=== PATIENT | female | born 1940 | race Hispanic/Latino ===

== ENCOUNTER → 2019-01-15 | Outpatient (CLI) | payer MEDICARE | END | disposition home or self-care (01) | LOC: RAH 10:51 | PROVIDERS: ATTEND Internal Medicine | DX: Z01.818 Encounter for other preprocedural examination (principal); I10 Essential (primary) hypertension | CPT/HCPCS: 71046 ==

== ENCOUNTER 2021-03-31 06:25 | Observation (INO) | payer MEDICARE ==
[2021-03-31] VITALS (22 sets, daily range): BP systolic 103–148; BP diastolic 44–77
[~2021-03-31] VITALS: Ht 165.1 cm; Wt 90.0 kg
[2021-03-31 08:14] LABS: BASOPHILS % (AUTO) 0.3 % (0.0-5.0); EOSINOPHILS % (AUTO) 0.1 % (0.0-8.0); HEMATOCRIT 35.6 % (36-48); LYMPHOCYTES % (AUTO) 7.6 % (21.0-51.0); MEAN CORPUSCULAR HEMOGLOBIN 32.2 pg (27.0-33.0); MEAN CORPUSCULAR HGB CONC 33.4 g/dL (32.0-36.0); MEAN CORPUSCULAR VOLUME 96.2 fL (79-99); MONOCYTES % (AUTO) 4.9 % (3.0-13.0); NEUTROPHILS % (AUTO) 86.5 % (40.0-77.0); PLATELET COUNT (AUTO) 335 K/uL (130-400); RED CELL DISTRIBUTION WIDTH 13.4 % (11.0-15.5); WHITE BLOOD COUNT (AUTO) 17.3 K/uL (4.8-10.8)
[2021-03-31] MEDS ORDERED: 0.9% NACL 500ML IV.SOLN 500 ML IV ONE (08:18)
[2021-03-31] MEDS ORDERED: ONDANSETRON 4MG INJ ONE ×2 (08:20→11:52)
[2021-03-31 08:27] LABS: CREATININE 0.9 mg/dL (0.5-1.5)
[2021-03-31] MEDS ORDERED: ONDANSETRON 4MG INJ IVP SCH (08:30)
[2021-03-31] MEDS ORDERED: 0.9% NACL 500ML IV.SOLN 500 ML IV SCH (08:30)
[2021-03-31 08:31] LABS: ALBUMIN 4.2 g/dL (3.5-5.0); BILIRUBIN,TOTAL 0.6 mg/dL (0.2-1.0)
[2021-03-31 08:44] LABS: APPEARANCE,URINE CLEAR (CLEAR); BILIRUBIN,URINE NEGATIVE (NEGATIVE); COLOR,URINE YELLOW (YELLOW); GLUCOSE, URINE (UA) NEGATIVE (NEGATIVE); KETONES,URINE NEGATIVE (NEGATIVE); LEUKOCYTE ESTERASE ,URINE MODERATE (NEGATIVE); NITRATE,URINE NEGATIVE (NEGATIVE); OCCULT BLOOD,URINE NEGATIVE (NEGATIVE); PH,URINE 5.5 (5.0-8.0); PROTEIN,URINE NEGATIVE (NEGATIVE); UROBILINOGEN,URINE 0.2 mg/dL (0.2-1.0)
[2021-03-31 08:49] LABS: BACTERIA,URINE Rare /HPF (None Seen); RBC,URINE 0-1 /HPF (0-1); SQUAMOUS EPITHELIAL CELL,UR Rare /HPF (0-2); WBC,URINE 0-1 /HPF (0-1)
[2021-03-31] MEDS ORDERED: ZOSYN 3.375GM +NS 50ML IV SCH (09:37)
[2021-03-31] MEDS ORDERED: BIMA12.5OS OU (10:26)
[2021-03-31] MEDS ORDERED: LOVA20TA3 PO (10:26)
[2021-03-31] MEDS ORDERED: CLON0.1T PO ×2 (10:26→10:27)
[2021-03-31] MEDS ORDERED: CETI10TA57 PO (10:26)
[2021-03-31] MEDS ORDERED: MONT-39 PO (10:26)
[2021-03-31] MEDS ORDERED: ESCI5TAB16 PO (10:26)
[2021-03-31] MEDS ORDERED: METO-391 PO ×3 (10:26→10:29)
[2021-03-31] MEDS ORDERED: FAMO-136 PO (10:26)
[2021-03-31] MEDS ORDERED: BRIM5DRO OU (10:26)
[2021-03-31] MEDS ORDERED: ASPI-1443 PO (10:26)
[2021-03-31] MEDS ORDERED: LIDOCAINE PF 100MG/5ML (2%) SYRINGE 5ML ONE (11:51)
[2021-03-31] MEDS ORDERED: SUCCINYLCHOLINE CHLORIDE 20 MG/ML 10 ML VIAL ONE (11:51)
[2021-03-31] MEDS ORDERED: ROCURONIUM 10MG/1ML SYR 10 MG/ML ML ONE (11:52)
[2021-03-31] MEDS ORDERED: NEOSTIGMINE 5MG/5ML SYR IV ONE (11:52)
[2021-03-31] MEDS ORDERED: DEXAMETHASONE SOD PHOSPHATE 10MG/ML 1ML VIAL ONE (11:52)
[2021-03-31] MEDS ORDERED: PROPOFOL 10 MG/ML 20ML VIAL IV ONE (11:52)
[2021-03-31] MEDS ORDERED: MIDAZOLAM HCL 1 MG/ML 2ML VIAL ONE (11:52)
[2021-03-31] MEDS ORDERED: GLYCOPYRROLATE 1 MG/5 ML SYRINGE ONE (11:52)
[2021-03-31] MEDS ORDERED: FENTANYL CITRATE PF 50 MCG/1 ML 2ML VIAL ONE (11:53)
[2021-03-31] MEDS ORDERED: MORPHINE 4 MG SYG IV SCH (12:00)
[2021-03-31] MEDS ORDERED: MORPHINE 4 MG SYG IM SCH (12:00)
[2021-03-31] MEDS ORDERED: LACTATED RINGERS 1000ML 1,000 ML IV ONE (12:03)
[2021-03-31] MEDS ORDERED: BUPIVACAINE/PF 0.5% 30ML VIAL ONE (12:40)
[2021-03-31] MEDS ORDERED: LIDOCAINE HCL 1% 20 ML VIAL ONE (12:40)
[2021-03-31] MEDS ORDERED: ESMOLOL HCL 10 MG/ML 10 ML VIAL ONE (12:54)
[2021-03-31] MEDS ORDERED: CEFAZOLIN SODIUM 1 GM VIAL ONE (13:14)
[2021-03-31] MEDS ORDERED: KCL 20 MEQ ERTAB PO PRN (13:30)
[2021-03-31] MEDS ORDERED: ACETAMINOPHEN 325 MG TAB PO PRN ×2 (13:30)
[2021-03-31] MEDS ORDERED: DiphenhydrAMINE HCL 50 MG/ML VIAL IV PRN (13:30)
[2021-03-31] MEDS ORDERED: MORPHINE 4 MG SYG IV PRN (13:30)
[2021-03-31] MEDS ORDERED: LIDOCAINE HCL-MPF 1% 2ML VIAL IV PRN ×2 (13:30)
[2021-03-31] MEDS ORDERED: POTASSIUM CHLORIDE 10% ELIXIR 20 MEQ/15 ML UDCUP PO PRN (13:30)
[2021-03-31] MEDS ORDERED: ONDANSETRON 4MG INJ IV PRN (13:30)
[2021-03-31] MEDS ORDERED: POTASSIUM CHLORIDE 20MEQ/100ML 100 ML IV PRN ×2 (13:30)
[2021-03-31] MEDS ORDERED: HYDROMORPHONE 1 MG INJ IVP PRN (15:30)
[2021-03-31] MEDS ORDERED: OXYCODONE/ACETAMIN 5/325MG TAB PO PRN (15:30)
[2021-03-31] MEDS: Brimonidine Tartrate/Timolol (Combigan Eye Drops) OU SCH (21:00)
[2021-03-31] MEDS: ZOSYN 3.375GM+NS 50ML 50 ML IV SCH (21:30)
[2021-03-31] MEDS: 0.9%NACL 1000ML 1,000 ML IV SCH ×2 (21:30→22:49)
[2021-04-01 04:21] VITALS: BP 105/41
[2021-04-01] MEDS: ZOSYN 3.375GM+NS 50ML 50 ML IV SCH ×2 (04:24→13:00)
[2021-04-01 05:44] LABS: HEMATOCRIT 29.4 % (36-48); MEAN CORPUSCULAR HEMOGLOBIN 32.4 pg (27.0-33.0); MEAN CORPUSCULAR VOLUME 98.3 fL (79-99); RED BLOOD CELL COUNT(AUTO) 2.99 MIL/uL (4.00-5.50); RED CELL DISTRIBUTION WIDTH 13.7 % (11.0-15.5); WHITE BLOOD COUNT (AUTO) 15.8 K/uL (4.8-10.8)
[2021-04-01 06:11] LABS: CREATININE 0.8 mg/dL (0.5-1.5); POTASSIUM 4.2 mmol/L (3.5-5.1)
[2021-04-01 08:50] VITALS: BP 113/56
[2021-04-01] MEDS: Brimonidine Tartrate/Timolol (Combigan Eye Drops) OU SCH (09:00)
[2021-04-01] MEDS ORDERED: Bimatoprost (Lumigan 0.01% Ophth Soln) OU SCH (09:00)
[2021-04-01] MEDS ORDERED: FAMOTIDINE 20MG VIAL IV SCH (09:00)
[2021-04-01] MEDS ORDERED: ENOXAPARIN SODIUM 30 MG/0.3 ML SQ SCH (09:00)
[2021-04-01 10:54] VITALS: BP 113/49
[2021-04-01] MEDS ORDERED: ACET1TAB25 PO (14:48)
[2021-04-01] MEDS ORDERED: ONDA22I IM (14:48)
[2021-04-01] MEDS ORDERED: POLY17PO4 PO (14:48)
[2021-04-01] MEDS ORDERED: AMOX-429 PO (14:48)
[2021-04-01 15:46] VITALS: BP 125/63
== END 2021-04-01 16:56 | disposition home or self-care (01) ==
LOC: EDH 06:25 → INTOOBSV 13:07 → EDHIP 13:07 → 3BH 14:55
PROVIDERS: ADMIT Internal Medicine; ATTEND Internal Medicine
DX: K35.891 Other acute appendicitis without perforation, with gangrene (principal); R11.2 Nausea with vomiting, unspecified; I12.9 Hypertensive chronic kidney disease with stage 1 through stage 4 chronic kidney disease, or unspecified chronic kidney disease; N18.2 Chronic kidney disease, stage 2 (mild); R00.1 Bradycardia, unspecified; E78.2 Mixed hyperlipidemia; M17.10 Unilateral primary osteoarthritis, unspecified knee; J30.9 Allergic rhinitis, unspecified; K04.1 Necrosis of pulp; F41.8 Other specified anxiety disorders; H40.9 Unspecified glaucoma; H04.129 Dry eye syndrome of unspecified lacrimal gland; K21.9 Gastro-esophageal reflux disease without esophagitis; E87.5 Hyperkalemia; N39.41 Urge incontinence; E88.81 Metabolic syndrome and other insulin resistance; F11.21 Opioid dependence, in remission; Z79.82 Long term (current) use of aspirin; Z86.010 Personal history of colon polyps; Z79.899 Other long term (current) drug therapy; Z96.652 Presence of left artificial knee joint
CPT/HCPCS: 36415 ×2; 44970; 74176; 80048; 80053; 81001; 82150; 83690; 85025; 85027; 87088; 88304; 96361; 96365; 96366 ×2; 96372 ×2; 96375; 99284; A4216; A4222; A4223; A4344; A4452; A4649 ×6; A4930; C1769 ×3; G0378 ×5; J0330; J0690; J1100; J1650; J2001; J2250; J2270; J2405 ×2; J2543 ×3; J2704; J2710; J3010; J3490 ×4; J7030; J7040; J7120